=== PATIENT | male | born 1945 | race Caucasian/White ===

== ENCOUNTER 2024-12-15 14:44 | Inpatient (IN) | payer MEDICARE, OTHER ==
[~2024-12-15] VITALS: Ht 185.4 cm; Wt 96.2 kg
[~2024-12-15 14:44] MED LIST: CIPR-207 PO; LACT1CAP26 PO; NO HOME MEDS
--- NOTE | 2024-12-15 15:04 | Physician Documentation ---
History of Present Illness ~ Chief Complaint: Urinary Symptoms Stated Complaint: URINARY COMPLICATIONS Time Seen by MD: 15:12 Primary Medical Doctor: [facility]. Dr. Waterman HPI 79-year-old male brought to the Emergency department due to confusion and urinary symptoms. Noted to be febrile and tachycardic upon arrival. Patient has prior history of the same one month ago was admitted to the hospital. Reportedly last night was attending a board meeting doing fine but endorses that he had some dysuria. Throughout the day today confusion as escalated and family brought him in the emergency department. Medication Reconciliation Allergies: Coded Allergies: No Known Allergies (Unverified , 10/19/24) Miscellaneous Medications Home Med List (No Home Medications), (Reported) Discontinued Medications Ciprofloxacin HCl (Ciprofloxacin HCl), 750 MG PO BIDQ Discontinued Reason: patient no longer taking Lactobacillus Rhamnosus (Culturelle), 1 CAP PO DAILY Discontinued Reason: patient no longer taking Past Medical History Alcohol Use: None Drug Use: none Lives with: Family Lives In: Home Occupation: retired Review of Systems Constitutional: Reports: see HPI, fever, malaise, other (Fused) Genitourinary: Reports: see HPI, burning Physical Exam Vital Signs: RN Vital Signs have been reviewed: Yes, Temperature: 100.7, Source: Oral, Heart Rate: 110, Respiratory Rate: 15, BP: 129/80, Pulse Oximetry: 92, Weight: 96.200 General Appearance: other (Confused) EENT: PERRL/EOMI Neck: normal inspection Chest: no accessory muscle use Cardiolovascular: tachycardia Gastrointestinal: normal palpation Rectal: deferred Back: normal inspection Extremities: normal range of motion Skin: normal color, warm/dry Lymphatic: no adenopathy Neurologic: not oriented Psychiatric: other (Infused) Sepsis Screening Extremities: normal capillary refill Skin Color: Normal Progress Results/Orders Results/Orders Orders - BAILEY CORTEZ PAC Culture Blood (12/15/24 15:22) Chest,Single View (12/15/24 15:22) * (A) Ellis- Protocol * Q12H@07,19 (12/15/24 15:59) Page Hospitalist (12/15/24 17:31) Fill Out Med Reconciliation (12/15/24 17:31) Lactic,2hr (12/15/24 17:47) Completed Orders - BAILEY CORTEZ PAC Electrocardiogram (12/15/24 15:22) MG (12/15/24 15:22) Chest,Single View (12/15/24 15:22) Procalcitonin (12/15/24 15:22) BMP (12/15/24 15:22) Lacticsepsis (12/15/24 15:22) Ondansetron Inj. (Zofran 4mg/2ml Vial) (12/15/24 15:30) Normal Saline 1000ml (Sodium Chloride 10 (12/15/24 15:30) Ceftriaxone/[id number] 1gm (Rocephin 1 (12/15/24 15:30) Lidocaine 2% Jelly 11ml Syr (Glydo-Lidoc (12/15/24 16:00) Medications Received in ER Medications (Trade) Dose Ordered Sig/Carmen Route PRN Reason Start Time Stop Time Status Last Admin Dose Admin (Zofran 4mg/2ml vial) 4 mg ONCE ONCE IV 12/15/24 15:30 12/15/24 15:31 DC 12/15/24 16:10 4 MG Sodium Chloride 1,000 ml @ 1,000 mls/hr ONCE ONCE IV 12/15/24 15:30 12/15/24 16:29 DC 12/15/24 15:58 1,000 MLS/HR Ceftriaxone Sodium 50 ml @ 100 mls/hr ONCE ONCE IV 12/15/24 15:30 12/15/24 15:59 DC 12/15/24 16:11 100 MLS/HR Vital Signs 12/15/24 12/15/24 12/15/24 12/15/24 14:49 15:44 15:59 17:19 Temp 100.7 Pulse 110 118 107 Resp 15 20 20 17 B/P (MAP) 129/80 145/89 (107) 123/43 (69) Pulse Ox 92 93 96 O2 Flow Rate 0 2.0 Laboratory Tests Test 12/15/24 15:43 12/15/24 16:44 12/15/24 18:39 White Blood Count 12.3 H Red Blood Count 5.65 Hemoglobin 16.5 Hematocrit 48.6 Mean Corpuscular Volume 85.9 Mean Corpuscular Hemoglobin 29.1 Mean Corpuscular Hemoglobin Concent 33.9 Red Cell Distribution Width 14.6 H Platelet Count 122 L Mean Platelet Volume 8.7 Neutrophils (%) (Auto) 93.7 H Lymphocytes (%) (Auto) 3.6 L Monocytes (%) (Auto) 2.3 Eosinophils (%) (Auto) 0.1 Basophils (%) (Auto) 0.3 Neutrophils # (Auto) 11.5 H Lymphocytes # (Auto) 0.4 L Monocytes # (Auto) 0.3 Eosinophils # (Auto) 0.0 Basophils # (Auto) 0.0 CBC Comment Sodium Level 136 Potassium Level 3.6 Chloride Level 100 Carbon Dioxide Level 25.4 Anion Gap 11 Blood Urea Nitrogen 9 Creatinine 1.47 H Estimated GFR/1.73 m2 46 BUN/Creatinine Ratio 6.1 L Glucose Level 155 H Lactic Acid Level 3.7 H Calcium Level 8.7 Magnesium Level 1.9 Total Bilirubin 2.3 H Aspartate Amino Transf (AST/SGOT) 19 Alanine Aminotransferase (ALT/SGPT) 18 Alkaline Phosphatase 110 Total Protein 7.6 Albumin 4.0 Globulin 3.6 Albumin/Globulin Ratio 1.1 Procalcitonin 0.11 Chemistry Comments Urine Specimen Description Ellis cath Urine Color Yellow Urine Clarity Cloudy Urine pH 6.0 Urine Specific [place] >=1.030 Urine Protein 30 H Urine Glucose (UA) Negative Urine Ketones 15 H Urine Occult Blood Large H Urine Nitrite Negative Urine Bilirubin Negative Urine Urobilinogen 0.2 Urine Leukocyte Esterase Trace H Urine RBC Tntc Urine WBC 30-50 H Urine Squamous Epithelial Cells Few Urine Bacteria 2+ Urine Mucus Few Urine Culture Indicated Indicated Volume Urine Centrifuged 10 ml Urine Comment Microbiology Date/Time Source Procedure Growth Status 12/15/24 17:26 Urine Ellis Cath Urine Culture - Preliminary Culture received. Resulted 12/15/24 15:43 Blood Iv Start Blood Culture - Preliminary NEGATIVE (LESS THAN 24 HOURS) Resulted Medical Decision Making Additional Comment Examination and history at the bedside consistent with early Urosepsis. Sepsis order initiated. Patient to refer receive antibiotic coverage after serology testing along with fluid resuscitation. Will consult hospitalist for pending admission. All labs obtained patient resuscitated with 2 L of normal saline and received ceftriaxone. Labs all reviewed and consistent with SEVERE SEPSIS CRIT ERIA: A FOCUSED SEPSIS PERFUSIONS/REPERFUSION REASSESSMENT EXAMINATION WAS PERFORMED POST 2 L NS CRITICAL CARE TIME: 30 minutes Treatments/Evaluations: Close monitoring and treatment of unstable vital signs, cardiorespiratory, and neurologic status, while maintaining tight balance of fluid, respiratory, and cardiac interventions. This includes the administration of emergency fluid management while maintaining close respiratory support as well as the provision of immediate and broad-spectrum antibiotic therapy, while performing a simultaneous assessment for possible sources in order to direct targeted therapy. This time includes discussing the case with the patient and the patients family. This time also includes the consideration for invasive and chemical support to prevent cardiopulmonary collapse. This time does not include all procedures stated elsewhere in this record. This time also includes reviewing old records, labs and radiological studies. This time includes examining and re-examining the patient. Additionally, this time also includes arranging care with admitting and consulting physicians. ADMISSION This patient requires inpatient admission and ongoing acute care as their infectious symptoms have not stabilized and the patient is at risk for decompensation and/or an adverse event. Outpatient therapy is not advisable/safe due to patients clinical status and/or social factors. The decision to admit was made after careful consideration of the patients past medical history, clinical risk factors, comorbidities, and diagnostic studies. The patient will be admitted for further therapy, hemodynamic monitoring, careful hydration, infection/source control, further diagnostic imaging, and possible procedure]. Departure Disposition: ADMITTED INPATIENT Admitted to Inpatient Unit: to hospitalist Impression: Primary Impression: Sepsis due to urinary tract infection Additional Impression: MIKE (acute kidney injury) Condition: Stable Referrals: NO PRIMARY CARE PROVIDER (PCP) Additional Comment Medical Screen Exam History: This 79-year-old male presents accompanied by daughter with approximately one day of dysuria, chills, weakness, and several hours of confus ion described as cognitive decline by patient's daughter. Patient's daughter reports patient is normally highly active and alert and oriented x4. Exam: VITALS: Reviewed and as above. GENERAL: Alert, nontoxic appearing, no apparent distress. RESPIRATORY: No increased work of breathing, no respiratory distress, speaking in full clear sentences NEURO: Somewhat slow to respond to questions MSE performed in triage and patient returned to ED lobby by nursing staff The note accurately reflects work and decisions made by me.PANTERA Hair 12/15/24 15:04 Signature Scribe Signature: . Attestation: . DAVID RENEE Dec 15, 2024 15:04 BAILEY CORTEZ PAC Dec 15, 2024 16:35
[2024-12-15] MEDS: normal saline 1000ml 1,000 ML IV ONE (15:58)
[2024-12-15] MEDS: ondansetron/PF 4mg/2ml inj IV ONE (16:10)
[2024-12-15] MEDS: CefTRIAXone/D5W-Rocephin 1gm 50 ML IV ONE ×2 (16:11→20:32)
[2024-12-15 16:27] LABS: BASOPHILS % (AUTO) 0.3 % (0-1); EOSINOPHILS % (AUTO) 0.1 % (0-6); HEMATOCRIT 48.6 % (42.0-52.0); HEMOGLOBIN 16.5 g/dl (14.0-17.9); LYMPHOCYTES # (AUTO) 0.4 X10'3 (1.1-4.8); LYMPHOCYTES % (AUTO) 3.6 % (21-51); MEAN CORPUSCULAR HEMOGLOBIN 29.1 PG (27.0-31.0); MEAN CORPUSCULAR HGB CONC 33.9 g/dL (33.0-36.5); MEAN CORPUSCULAR VOLUME 85.9 FL (78-98); MEAN PLATELET VOLUME 8.7 FL (7.4-10.4); MONOCYTES # (AUTO) 0.3 X10'3 (0-0.9); MONOCYTES % (AUTO) 2.3 % (2-12); NEUTROPHILS # (AUTO) 11.5 X10'3 (1.8-7.7); NEUTROPHILS % (AUTO) 93.7 % (42-75); PLATELET COUNT 122 X10'3 (140-440); RED BLOOD COUNT 5.65 X10'6 (4.70-6.10); RED CELL DISTRIBUTION WIDTH 14.6 % (11.5-14.5); WHITE BLOOD COUNT 12.3 X10'3 (4.5-11.0)
[2024-12-15] MEDS: LidoCAINE 2% Topical Jelly 11mL syringe (UROJET) TOP ONE (16:28)
--- NOTE | 2024-12-15 16:31 | RADIOLOGY REPORT ---
CHEST RADIOGRAPH Indication: SEPSIS Technique: Single frontal view of the chest was obtained COMPARISON: DI CHEST,SINGLE VIEW on DOS: 10/19/24 FINDINGS: The study is nondiagnostic secondary to technical factors. Repeat chest x-ray recommended.
[2024-12-15 17:07] LABS: ALANINE AMINOTRANSFERASE 18 U/L (12-78); ALBUMIN/GLOBULIN RATIO 1.1 (1.1-1.5); ALKALINE PHOSPHATASE 110 IU/L (46-116); ANION GAP 11 (8-16); ASPARTATE AMINO TRANSFERASE 19 U/L (10-37); BILIRUBIN,TOTAL 2.3 MG/DL (0.1-1.0); BLOOD UREA NITROGEN 9 MG/DL (7-18); BUN/CREATININE RATIO 6.1 (10.0-20.0); CALCIUM 8.7 MG/DL (8.5-10.1); CHLORIDE 100 MMOL/L (99-107); CREATININE 1.47 MG/DL (0.60-1.10); GLUCOSE 155 MG/DL (70-104); MAGNESIUM 1.9 MG/DL (1.5-2.4); POTASSIUM 3.6 MMOL/L (3.5-5.1); SODIUM 136 MMOL/L (135-145); TOTAL CARBON DIOXIDE 25.4 MMOL/L (24-32); TOTAL PROTEIN 7.6 G/DL (6.4-8.2); eCRCL 48 ML/MIN; eGFR 46 ML/MIN
--- NOTE | 2024-12-15 17:07 | ELECTROCARDIOGRAPH REPORT ---
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 Ananth Hutton Measurements Intervals [place] Rate: 107 P: 53 VT: 141 QRS: 118 QRSD: 110 T: 53 QT: 392 QTc: 523 Interpretive Statements Sinus tachycardia Consider right ventricular hypertrophy Minimal ST elevation, inferior leads Prolonged QT interval Artifact in lead(s) I,II,III,aVR,aVL,aVF,V1,V2 Electronically Signed On 12-17-2024 6:35:[address] Ananth Hutton Please click the below link to view image of tracing.
[2024-12-15 17:19] LABS: BILIRUBIN,URINE NEGATIVE (Neg); CLARITY,URINE CLOUDY (Clear); COLOR,URINE YELLOW (Yellow); GLUCOSE, URINE NEGATIVE (Neg); KETONES,URINE 15 mg/dl (Neg); LEUKOCYTE ESTERASE ,URINE TRACE (Neg); OCCULT BLOOD,URINE LARGE (Neg); PROTEIN,URINE 30 mg/dl (Neg); UROBILINOGEN,URINE 0.2 E.U/dL (0.2-1.0)
[2024-12-15 17:22] LABS: NITRITES, URINE NEGATIVE (Neg); UA COLLECTION TYPE FOLEY CATH
[2024-12-15 17:25] LABS: BACTERIA,URINE 2+ /HPF (Neg); RBC,URINE TNTC /HPF (0-2); WBC,URINE 30-50 /HPF (0-4)
[2024-12-15 17:26] LABS: MUCUS STRANDS FEW /LPF (Neg); SQUAMOUS EPITHELIAL CELL,UR FEW /LPF (FEW)
[2024-12-15 22:50] VITALS: BP 116/64; PULSE 93; RESP 15; TEMP 101.3; O2SAT 93
[2024-12-15] MEDS ORDERED: magnesium hydroxide 30ml (MOM) UD suspension PO PRN (22:55)
[2024-12-15] MEDS ORDERED: potassium Cl 40MEQ/1/2NS 520ml 520 ML IV PRN (22:55)
[2024-12-15] MEDS ORDERED: potassium Cl 20 mEq SR tablet PO PRN ×2 (22:55)
[2024-12-15] MEDS ORDERED: magnesium sulf-water 4G/100mL 100 ML IV PRN (22:55)
[2024-12-15] MEDS ORDERED: mag hydrox/Alum hydrox/simeth 30ml oral suspension PO PRN (22:55)
[2024-12-15] MEDS ORDERED: morphine 2 MG/ML inj. syringe IV PRN (22:55)
[2024-12-15] MEDS ORDERED: ondansetron/PF 4mg/2ml inj IV PRN (22:55)
[2024-12-15] MEDS ORDERED: HYDROcodone/acetaminophen 5mg/325mg tablet PO PRN (22:55)
[2024-12-15] MEDS ORDERED: magnesium sulf-water 2g/50mL 50 ML IV PRN (22:55)
[2024-12-15] MEDS ORDERED: magnesium Cl slow-release 64mg tablet PO PRN (22:55)
--- NOTE | 2024-12-15 22:58 | HISTORY AND PHYSICAL-Residence ---
History & Physical Providers to CC Resident Creating Document: LORENZO HERNANDEZ, RES CC: LONI GILES MD ~ History of Present Illness Primary Medical Doctor: [facility]. Dr. Waterman Reason for Admit\Complaint: Burning micturition History of Present Illness A 79-year-old male with no significant past medical history presented to the ED with altered mental status and pain while urinating since last night. Patient endorses that he has burning sensation since last night with associated fever and chills that started this morning patient is and daughter claims that he has been confused since this morning. They also state that patient had UTI and sepsis in the beginning of the October that was treated in this hospital when he recovered completely. Patient also endorses that he vomited once this morning. Patient endorses sensation of incomplete emptying of bladder. Per the daughter, patient had urinary incontinence as a child due to some anatomic defect of the bladder and urethra. Patient does endorse associated pain in the lower abdomen Allergies: Coded Allergies: No Known Allergies (Unverified , 10/19/24) Home Medications Home Medications Active Reported No Home Medications (Home Med List) Each Past Medical History Past Medical History None Past Surgical History Surgical History Comment Hernia repair Tonsillectomy Past Social History Social History Comment Smoked one pack of cigarettes for the last 20 years and quit 30 years ago No alcohol, marijuana or illicit drugs Lives at home with Goes to [facility] for primary care Smoking: Quit greater than 1 year Alcohol Use: None Drug Use: None Lives with: Family Lives In: Home Occupation: retired ROS ROS All other systems reviewed in full and negative except for the pertinent positives mentioned in the HPI Constitutional: Reports: see HPI, fever, malaise, other (Fused) Genitourinary: Reports: see HPI, burning Exam Vitals: Vital Signs Date Time Temp Pulse Resp B/P (MAP) Pulse Ox O2 Delivery O2 Flow Rate FiO2 12/15/24 22:24 97.9 96 30 117/65 (82) 98 2.0 General: General: Confused HEENT: PERRLA, no icterus, pallor, lymphadenopathy, carotid bruit Respiratory system: Bilateral vesicular breath sounds heard, no adventitious breath sounds CVS: S1-S2 heard, no murmurs/rubs/gallop GI: Tenderness in the lower abdominal region, Soft,no organomegaly, no guarding/rigidity, bowel sounds present Neuro: No focal neurological deficits present Extremities: No edema cyanosis clubbing/deformities Genitourinary: Has indwelling Ellis's catheter Skin: Warm and dry Diagnostic Data Last Recorded Lab Results: 12/15/24 1543 12/15/24 1543 Advance Care Planning Advanced Care plannin - 30 Minutes (I spent 20 minutes discussing various resuscitative measures and the patient decided to be full code) Additional Plan Assessment: A 79-year-old male with no past medical history presented to the ED with burning micturition, pain and fever. Patient is admitted for the evaluation management of recurrent UTI and possible sepsis Plan: Recurrent UTI Possible underlying sepsis History of Pseudomonas septicemia Underlying BPH Elevated lactic acid and WBC count, normal procalcitonin UA positive for ketones, leukocyte esterase and WBC Patient was discharged on levofloxacin last time, Dr. Bowden was following the patient while in the hospital Follow up with CT abdomen pelvis Based on imaging findings, in view of recurrent UTI, underlying BPH could have been the reason recurrent UTI as med require urology follow up and consult along with ID consult. Patient is started on IV Zosyn, received ceftriaxone in the ED Follow up with urine culture and blood cultures ID consult in a.m. Prerenal MIKE probably secondary to renal tubular stasis Elevated creatinine Continue to monitor BMP Continue IV fluids at 100 cc/hour Code status: Full code Diet: Regular diet DVT prophylaxis: SCD Disposition: Admit to ortho, ID consult in a.m., follow up with urine cultures and CT abdomen pelvis Lorenzo Hernandez MD Internal Medicine, PGY 1 BPH Consider starting tamsulosin in a.m. after imaging findings I discussed the patient with the resident and agree with the assessment and plan as above. Loni Giles MD Critical Care Date of Service: Dec 15, 2024 Billing Provider: LONI GILES MD, SIVA, RES Dec 15, 2024 22:58 LONI GILES MD Dec 16, 2024 03:25
[2024-12-15] MEDS: normal saline 1000ml 1,000 ML IV SCH (23:27)
[2024-12-15] MEDS: acetaminophen 325mg tablet PO PRN (23:27)
[2024-12-16] MEDS: piperacillin/tazo 3.375gm/50ml 50 ML IV ONE (01:19)
[2024-12-16] MEDS: piperacillin/tazo 3.375gm/50ml 100 ML IV SCH (01:19)
[2024-12-16 05:37] LABS: BASOPHILS # (AUTO) 0.1 X10'3 (0-0.2); BASOPHILS % (AUTO) 0.4 % (0-1); EOSINOPHILS % (AUTO) 0 % (0-6); HEMATOCRIT 44.6 % (42.0-52.0); HEMOGLOBIN 15.1 g/dl (14.0-17.9); LYMPHOCYTES # (AUTO) 0.5 X10'3 (1.1-4.8); LYMPHOCYTES % (AUTO) 4.3 % (21-51); MEAN CORPUSCULAR HEMOGLOBIN 29.1 PG (27.0-31.0); MEAN CORPUSCULAR HGB CONC 33.9 g/dL (33.0-36.5); MEAN CORPUSCULAR VOLUME 85.7 FL (78-98); MEAN PLATELET VOLUME 8.5 FL (7.4-10.4); MONOCYTES # (AUTO) 0.4 X10'3 (0-0.9); MONOCYTES % (AUTO) 3.4 % (2-12); NEUTROPHILS % (AUTO) 91.9 % (42-75); PLATELET COUNT 104 X10'3 (140-440); RED BLOOD COUNT 5.21 X10'6 (4.70-6.10); RED CELL DISTRIBUTION WIDTH 14.6 % (11.5-14.5)
[2024-12-16 05:49] LABS: ALBUMIN 3.1 G/DL (3.4-5.0); ANION GAP 8 (8-16); BLOOD UREA NITROGEN 13 MG/DL (7-18); BUN/CREATININE RATIO 8.4 (10.0-20.0); CALCIUM 8.3 MG/DL (8.5-10.1); CHLORIDE 104 MMOL/L (99-107); CREATININE 1.54 MG/DL (0.60-1.10); GLUCOSE 120 MG/DL (70-104); MAGNESIUM 1.8 MG/DL (1.5-2.4); POTASSIUM 3.6 MMOL/L (3.5-5.1); SODIUM 139 MMOL/L (135-145); eCRCL 45 ML/MIN; eGFR 44 ML/MIN
[2024-12-16 06:00] VITALS: BP 115/58; PULSE 93; RESP 15; TEMP 100.3; O2SAT 92
[2024-12-16] MEDS: docusate sod 100mg capsule PO SCH (07:10)
[2024-12-16] MEDS: heparin, porcine 5000 units/ml vial SQ SCH (07:10)
[2024-12-16] MEDS: K and/or MAG REPLACEMENT MC SCH (08:00)
[2024-12-16 08:43] VITALS: TEMP 102.6
--- NOTE | 2024-12-16 09:59 | PROGRESS NOTE ---
Daily Progress Note Providers to CC ~ Antibiotic Timeout Antibiotic Ordered?: Yes Subjective Patient has no new complaints. Seen resting comfortably. RN reports that patient has blood cultures positive. Objective Vital Signs Date Time Temp Pulse Resp B/P (MAP) Pulse Ox O2 Delivery O2 Flow Rate FiO2 12/16/24 08:43 102.6 12/16/24 08:00 Nasal Cannula 2.0 12/16/24 06:00 91 12/16/24 06:00 15 115/58 (77) 92 Result Diagram: 12/16/247 12/16/24 0447 Awake alert cooperative in no acute distress HEENT normocephalic atraumatic extraocular movements are intact Neck supple, no JVD Chest: Clear to auscultation, no wheezes crackles rhonchi Heart: Regular rate rhythm, no murmur or gallop rub Abdomen soft, nontender, no organomegaly Extremities no cyanosis clubbing or edema Neuro exam is nonfocal. Other Results Medications reviewed Problem\Assessment\Plan 79 years old male presented to the ER with altered mental status. Patient complained of dysuria at the time of admission 1. Sepsis source urine: Cultures negative so far 2. Bacteremia: Blood cultures positive. Await final cultures. Continue IV antibiotics 3. MIKE: Creatinine is trendin up. Patient has a normal saline. Continue monitor. 4. Code status: Full code Sepsis Screening Skin Color: Normal Date of Service: Dec 16, 2024 Billing Provider: GORGE PETE MD Common Visit Codes: [id number] INP/OBS CARE(HIGH) GORGE PETE MD Dec 16, 2024 09:59
[2024-12-16 10:00] VITALS: BP 105/62; PULSE 92; RESP 16; TEMP 97.4; O2SAT 97
[2024-12-16 10:47] VITALS: TEMP 99.8
--- NOTE | 2024-12-16 11:30 | RADIOLOGY REPORT ---
Exam: CT CT ABDOMEN PELVIS History: uti, rule out pyelonephritis Comparison Study: CT chest abdomen pelvis performed on 10/22/2024. Technique: Multidetector spiral CT of the abdomen and pelvis was performed from lung bases to pubic s ymphysis. Imaging was performed without intravenous contrast. Coronal and sagittal multiplanar reform ats were obtained from the axial data set by the technologist. Radiation Dose : 1. Abdomen/Pelvis: CTDIvol 25.1 mGy, DLP 1334 mGy*cm. Findings: Evaluation of vasculature and solid organs is limited due to lack of intravenous contrast use. Lung Bases: Bibasilar atelectasis. Visualized portions of the heart and pericardium are unremarkable. Liver: The liver is normal in size. No focal lesions. Diffusely hypoattenuating liver parenchyma con sistent with hepatic steatosis. Gallbladder and Biliary Tree: The gallbladder contains sludge. No intrahepatic or extrahepatic bilia ry ductal dilatation. Spleen: Calcified granulomas in the spleen. The spleen is not enlarged. Pancreas: The pancreas is grossly unremarkable. Adrenal Glands: Unremarkable Kidneys: No intrarenal calculi or hydronephrosis in the right or left kidney. Bilateral perinephric fat stranding. GI tract: The stomach is grossly normal in appearance. No evidence of small bowel wall thickening or abnormal dilatation to suggest bowel obstruction. The colon is unremarkable. The appendix is not visu alized, however no inflammatory changes in the right lower quadrant to suggest acute appendicitis. Peritoneum/mesentery/retroperitoneum. No evidence of free intraperitoneal air. No ascites. No evidenc e of suspicious lymphadenopathy. Abdominal Wall: Unremarkable. Vasculature: Infrarenal abdominal aortic aneurysm measures 5.1 cm. There is intramural thrombus. Rig ht common iliac artery aneurysm measures 3.5 cm and left common iliac artery aneurysm measures 2.8 cm . These are not significantly changed. There is intramural thrombus in both. Urinary Bladder: Ellis catheter in the urinary bladder. Urinary bladder underdistended with wall thic kening and contains air which may be related to the presence of the Ellis catheter. Pelvic Organs: Unremarkable Musculoskeletal: No aggressive focal bony lesions, acute fractures or dislocation. IMPRESSION: 1. Nonspecific bilateral perinephric fat stranding. No hydronephrosis or intrarenal calculi. Urinary bladder wall thickening, nonspecific and in part attributable to underdistention. Constellation of findings may reflect urinary tract infection. 2. Infrarenal abdominal aortic aneurysm measuring 5.1 cm with intramural thrombus and bilateral comm on iliac artery aneurysm measuring 3.5 cm on the right and 2.8 cm in the left, not significantly franco ged. 3. Hepatic steatosis.
[2024-12-16] MEDS: piperacillin/tazo 3.375gm/50ml 50 ML IV SCH (16:33)
[2024-12-16] MEDS: lactose-reduced food (Ensure Enlive) - 237ml bottle PO SCH (18:15)
[2024-12-16 18:30] VITALS: BP 124/63; PULSE 90; RESP 16; TEMP 97.2; O2SAT 95
[2024-12-16 22:00] VITALS: BP 115/61; PULSE 90; RESP 16; TEMP 100.5; O2SAT 92
[2024-12-17 04:58] LABS: BASOPHILS # (AUTO) 0.1 X10'3 (0-0.2); BASOPHILS % (AUTO) 0.8 % (0-1); EOSINOPHILS # (AUTO) 0.1 X10'3 (0-0.9); EOSINOPHILS % (AUTO) 0.8 % (0-6); HEMATOCRIT 45.6 % (42.0-52.0); HEMOGLOBIN 15.4 g/dl (14.0-17.9); LYMPHOCYTES % (AUTO) 14.7 % (21-51); MEAN CORPUSCULAR HEMOGLOBIN 29.4 PG (27.0-31.0); MEAN CORPUSCULAR HGB CONC 33.7 g/dL (33.0-36.5); MEAN CORPUSCULAR VOLUME 87.1 FL (78-98); MEAN PLATELET VOLUME 8.6 FL (7.4-10.4); MONOCYTES # (AUTO) 0.7 X10'3 (0-0.9); MONOCYTES % (AUTO) 10.6 % (2-12); NEUTROPHILS % (AUTO) 73.1 % (42-75); PLATELET COUNT 103 X10'3 (140-440); RED BLOOD COUNT 5.24 X10'6 (4.70-6.10); RED CELL DISTRIBUTION WIDTH 14.9 % (11.5-14.5); WHITE BLOOD COUNT 6.9 X10'3 (4.5-11.0)
[2024-12-17 05:16] LABS: ALBUMIN 2.8 G/DL (3.4-5.0); ANION GAP 9 (8-16); BLOOD UREA NITROGEN 16 MG/DL (7-18); BUN/CREATININE RATIO 11.3 (10.0-20.0); CALCIUM 8.6 MG/DL (8.5-10.1); CHLORIDE 107 MMOL/L (99-107); CREATININE 1.42 MG/DL (0.60-1.10); GLUCOSE 126 MG/DL (70-104); MAGNESIUM 2.3 MG/DL (1.5-2.4); POTASSIUM 4.1 MMOL/L (3.5-5.1); SODIUM 143 MMOL/L (135-145); TOTAL CARBON DIOXIDE 27.2 MMOL/L (24-32); eCRCL 49 ML/MIN; eGFR 48 ML/MIN
[2024-12-17 06:00] VITALS: BP 110/71; PULSE 69; RESP 17; TEMP 97.4; O2SAT 96
[2024-12-17 08:20] VITALS: RESP 17; O2SAT 96
[2024-12-17 10:00] VITALS: BP 126/78; PULSE 74; RESP 16; TEMP 97.7; O2SAT 95
--- NOTE | 2024-12-17 15:04 | PROGRESS NOTE ---
Daily Progress Note Providers to CC ~ Antibiotic Timeout Antibiotic Ordered?: Yes Subjective No new complaints, patient is seen resting comfortably. Objective Vital Signs Date Time Temp Pulse Resp B/P (MAP) Pulse Ox O2 Delivery O2 Flow Rate FiO2 12/17/24 06:00 97.4 69 17 110/71 (84) 96 Nasal Cannula 2.0 28 Result Diagram: 12/17/24 0441 12/17/24 0441 Awake alert cooperative in no acute distress HEENT normocephalic atraumatic extraocular movements are intact Neck supple, no JVD Chest: Clear to auscultation, no wheezes crackles rhonchi Heart: Regular rate rhythm, no murmur or gallop rub Abdomen soft, nontender, no organomegaly Extremities no cyanosis clubbing or edema Neuro exam is nonfocal. Other Results Medications reviewed Problem\Assessment\Plan 79 years old male presented to the ER with altered mental status. Patient complained of dysuria at the time of admission 1. Sepsis source urine: Cultures negative so far 2. Bacteremia: Blood cultures positive. Await final cultures. Continue IV antibiotics 3. MIKE: Creatinine is trendin up. Patient has a normal saline. Continue monitor. 4. Infectious encephalopathy; Resolved 5. Code status: Full code Sepsis Screening Skin Color: Normal Date of Service: Dec 17, 2024 Billing Provider: GORGE PETE MD Common Visit Codes: [id number] INP/OBS CARE(HIGH) GORGE PETE MD Dec 17, 2024 15:03
[2024-12-17 18:00] VITALS: BP 123/77; PULSE 79; RESP 17; TEMP 98.1; O2SAT 94
[2024-12-17 20:00] VITALS: RESP 17; O2SAT 94
[2024-12-17 22:00] VITALS: BP 132/78; PULSE 79; RESP 16; TEMP 98.9; O2SAT 94
[2024-12-18 06:00] VITALS: BP 123/73; PULSE 63; RESP 16; TEMP 97.8; O2SAT 94
[2024-12-18 07:13] LABS: BASOPHILS # (AUTO) 0.1 X10'3 (0-0.2); BASOPHILS % (AUTO) 1.1 % (0-1); EOSINOPHILS # (AUTO) 0.2 X10'3 (0-0.9); EOSINOPHILS % (AUTO) 4.1 % (0-6); HEMOGLOBIN 14.9 g/dl (14.0-17.9); LYMPHOCYTES # (AUTO) 1.3 X10'3 (1.1-4.8); LYMPHOCYTES % (AUTO) 23.4 % (21-51); MEAN CORPUSCULAR HEMOGLOBIN 29.1 PG (27.0-31.0); MEAN CORPUSCULAR HGB CONC 33.9 g/dL (33.0-36.5); MEAN CORPUSCULAR VOLUME 85.8 FL (78-98); MEAN PLATELET VOLUME 9.3 FL (7.4-10.4); MONOCYTES # (AUTO) 0.6 X10'3 (0-0.9); MONOCYTES % (AUTO) 9.9 % (2-12); NEUTROPHILS # (AUTO) 3.5 X10'3 (1.8-7.7); NEUTROPHILS % (AUTO) 61.5 % (42-75); PLATELET COUNT 103 X10'3 (140-440); RED BLOOD COUNT 5.13 X10'6 (4.70-6.10); RED CELL DISTRIBUTION WIDTH 14.7 % (11.5-14.5); WHITE BLOOD COUNT 5.7 X10'3 (4.5-11.0)
[2024-12-18 07:22] LABS: ALBUMIN 2.8 G/DL (3.4-5.0); ANION GAP 7 (8-16); BLOOD UREA NITROGEN 14 MG/DL (7-18); CALCIUM 8.5 MG/DL (8.5-10.1); CHLORIDE 107 MMOL/L (99-107); CREATININE 1.08 MG/DL (0.60-1.10); GLUCOSE 104 MG/DL (70-104); MAGNESIUM 2.2 MG/DL (1.5-2.4); SODIUM 142 MMOL/L (135-145); TOTAL CARBON DIOXIDE 27.9 MMOL/L (24-32); eCRCL 65 ML/MIN; eGFR 66 ML/MIN
[2024-12-18 07:23] LABS: POTASSIUM 3.9 MMOL/L (3.5-5.1)
[2024-12-18 07:35] VITALS: RESP 16; O2SAT 94
[2024-12-18 10:00] VITALS: BP 139/80; PULSE 84; RESP 18; TEMP 97.6; O2SAT 92
[2024-12-18 18:30] VITALS: BP 118/77; PULSE 75; RESP 18; TEMP 97.8; O2SAT 93
--- NOTE | 2024-12-18 19:08 | CONSULTATION REPORT ---
Consult Consult Consultation Antibiotic Days Zosyn 2 S/P Rocephin Lines PIV Micro 12/15 Blood- Pseudomonas 12/15 Urine- negative Subjective: Patient is a 79 year old male who is known to me due to a consultation in October for Pseudomonas septicemia. At the time, he was thought to have had a prostate source so he was discharged home to complete a 4 week course of Ciprofloxacin. Today, he states that he had, in fact, done so and that he was feeling great, active and working in his yard. He presented to the ER on 12/15, however, with burning on urination which progressed to confusion. He was admitted for sepsis and ID is asked to consult because he is growing Pseudomonas in the blood again. On current exam, he denies any other potential sources no joint pains and back pain at baseline. Objective Vitals: Afebrile, 79, 16, 132/78, 94% on 2L Alert, NAD nc/at, no oral lesions regular, no murmur appreciated clear anteriorly soft, not tender, no flank nor suprapubic pain PIV ok Laboratory Tests 12/18/24 06:12 12/16 CT 1. Nonspecific bilateral perinephric fat stranding. No hydronephrosis or intrarenal calculi. Urinary bladder wall thickening, nonspecific and in part attributable to underdistention. Constellation of findings may reflect urinary tract infection. 2. Infrarenal abdominal aortic aneurysm measuring 5.1 cm with intramural thrombus and bilateral common iliac artery aneurysm measuring 3.5 cm on the right and 2.8 cm in the left, not significantly changed. 3. Hepatic steatosis. Assessment: // Recurrent pseudomonas septicemia- he complained of urinary symptoms again though it is unclear why he may have recurred // Antibiotic Allergies: none Plan: - Patient can be transitioned back to Cipro for ease of ultimate discharge - However, since this is a recurrence, he should not go until he gets repeat blood cultures and 2D echo to ensure no deeper seeding - Monitor Cr - Physical therapy - Will continue to follow PARRIS CHRIS DO Dec 18, 2024 19:08
--- NOTE | 2024-12-18 19:43 | PROGRESS NOTE ---
Daily Progress Note Providers to CC ~ Antibiotic Timeout Antibiotic Ordered?: Yes Subjective No new complaints, patient is seen resting comfortably Objective Vital Signs Date Time Temp Pulse Resp B/P (MAP) Pulse Ox O2 Delivery O2 Flow Rate FiO2 12/18/24 18:30 97.8 75 18 118/77 (91) 93 Nasal Cannula 1.0 12/18/24 10:00 24 Result Diagram: 12/18/24 0612 12/18/24 0612 Awake alert cooperative in no acute distress HEENT normocephalic atraumatic extraocular movements are intact Neck supple, no JVD Chest: Clear to auscultation, no wheezes crackles rhonchi Heart: Regular rate rhythm, no murmur or gallop rub Abdomen soft, nontender, no organomegaly Extremities no cyanosis clubbing or edema Neuro exam is nonfocal. Other Results Medications reviewed Problem\Assessment\Plan 79 years old male presented to the ER with altered mental status. Patient complained of dysuria at the time of admission 1. Sepsis source urine: Cultures NGTD. 2. Bacteremia: Blood cultures positive. Await final cultures. Continue IV antibiotics 3. MIKE: Resolved with IVF . 4. Infectious encephalopathy; Resolved 5. Code status: Full code 6. Disposition :Home when cleared by ID . Sepsis Screening Skin Color: Normal Date of Service: Dec 18, 2024 Billing Provider: GORGE PETE MD Common Visit Codes: [id number] INP/OBS CARE(HIGH) GORGE PETE MD Dec 18, 2024 19:43
[2024-12-18 22:00] VITALS: BP 122/75; PULSE 69; RESP 16; TEMP 97.8; O2SAT 95
[2024-12-18] MEDS: ciprofloxacin 250mg tablet PO SCH (22:14)
[2024-12-19 06:00] VITALS: BP 129/76; PULSE 76; RESP 15; TEMP 98.1; O2SAT 95
[2024-12-19 07:29] LABS: BASOPHILS # (AUTO) 0.1 X10'3 (0-0.2); BASOPHILS % (AUTO) 1.1 % (0-1); EOSINOPHILS # (AUTO) 0.2 X10'3 (0-0.9); EOSINOPHILS % (AUTO) 4.4 % (0-6); HEMATOCRIT 43.2 % (42.0-52.0); HEMOGLOBIN 14.8 g/dl (14.0-17.9); LYMPHOCYTES # (AUTO) 1.4 X10'3 (1.1-4.8); LYMPHOCYTES % (AUTO) 27.2 % (21-51); MEAN CORPUSCULAR HEMOGLOBIN 29.2 PG (27.0-31.0); MEAN CORPUSCULAR HGB CONC 34.2 g/dL (33.0-36.5); MEAN CORPUSCULAR VOLUME 85.5 FL (78-98); MEAN PLATELET VOLUME 8.3 FL (7.4-10.4); MONOCYTES # (AUTO) 0.5 X10'3 (0-0.9); MONOCYTES % (AUTO) 9.6 % (2-12); NEUTROPHILS % (AUTO) 57.7 % (42-75); PLATELET COUNT 127 X10'3 (140-440); RED BLOOD COUNT 5.05 X10'6 (4.70-6.10); WHITE BLOOD COUNT 5.2 X10'3 (4.5-11.0)
[2024-12-19 07:56] LABS: ANION GAP 9 (8-16); BLOOD UREA NITROGEN 12 MG/DL (7-18); BUN/CREATININE RATIO 11.1 (10.0-20.0); CALCIUM 8.5 MG/DL (8.5-10.1); CHLORIDE 108 MMOL/L (99-107); CREATININE 1.08 MG/DL (0.60-1.10); GLUCOSE 109 MG/DL (70-104); MAGNESIUM 2.2 MG/DL (1.5-2.4); SODIUM 143 MMOL/L (135-145); TOTAL CARBON DIOXIDE 26.2 MMOL/L (24-32); eCRCL 65 ML/MIN; eGFR 66 ML/MIN
[2024-12-19 08:00] VITALS: RESP 20; O2SAT 91
[2024-12-19 10:00] VITALS: BP 133/76; PULSE 90; RESP 20; TEMP 98; O2SAT 91
--- NOTE | 2024-12-19 17:56 | PROGRESS NOTE ---
Daily Progress Note Providers to CC ~ Antibiotic Timeout Antibiotic Ordered?: Yes Subjective Patient has no new complaints, seen resting comfortably. Objective Vital Signs Date Time Temp Pulse Resp B/P (MAP) Pulse Ox O2 Delivery O2 Flow Rate FiO2 12/19/24 10:00 98.0 90 20 133/76 (95) 91 Room Air 12/18/24 18:30 1.0 12/18/24 10:00 24 Result Diagram: 12/19/24 0704 12/19/24 0704 Awake alert cooperative in no acute distress HEENT normocephalic atraumatic extraocular movements are intact Neck supple, no JVD Chest: Clear to auscultation, no wheezes crackles rhonchi Heart: Regular rate rhythm, no murmur or gallop rub Abdomen soft, nontender, no organomegaly Extremities no cyanosis clubbing or edema Neuro exam is nonfocal. Other Results Medications reviewed Problem\Assessment\Plan 79 years old male presented to the ER with altered mental status. Patient complained of dysuria at the time of admission 1. Sepsis source urine: Cultures NGTD. Echo pending . ID consulted . Reviewed recommendations of Dr. Bowden. 2. Bacteremia: Blood cultures positive for Pseudomonas. Abx per ID 3. MIKE: Resolved with IVF . 4. Infectious encephalopathy; Resolved 5. Code status: Full code 6. Disposition :Home when cleared by ID . Sepsis Screening Skin Color: Normal Date of Service: Dec 19, 2024 Billing Provider: GORGE PETE MD Common Visit Codes: [id number] INP/OBS CARE(HIGH) GORGE PETE MD Dec 19, 2024 17:55
[2024-12-19 19:00] VITALS: BP 134/73; PULSE 69; RESP 16; TEMP 98; O2SAT 93
[2024-12-19] MEDS ORDERED: morphine 4 MG/ML inj SYRINge IV PRN (20:18)
[2024-12-19 22:00] VITALS: BP 121/77; PULSE 73; RESP 13; TEMP 97.5; O2SAT 93
[2024-12-20 05:00] VITALS: BP 151/81; PULSE 84; RESP 19; TEMP 97.2; O2SAT 92
[2024-12-20 06:05] LABS: ANION GAP 9 (8-16); BLOOD UREA NITROGEN 12 MG/DL (7-18); BUN/CREATININE RATIO 11.8 (10.0-20.0); CALCIUM 8.8 MG/DL (8.5-10.1); CHLORIDE 108 MMOL/L (99-107); CREATININE 1.02 MG/DL (0.60-1.10); GLUCOSE 105 MG/DL (70-104); POTASSIUM 3.9 MMOL/L (3.5-5.1); SODIUM 142 MMOL/L (135-145); TOTAL CARBON DIOXIDE 25.2 MMOL/L (24-32); eCRCL 69 ML/MIN; eGFR 71 ML/MIN
[2024-12-20 06:07] LABS: BASOPHILS # (AUTO) 0.1 X10'3 (0-0.2); BASOPHILS % (AUTO) 1.4 % (0-1); EOSINOPHILS # (AUTO) 0.2 X10'3 (0-0.9); EOSINOPHILS % (AUTO) 3.7 % (0-6); HEMATOCRIT 42.8 % (42.0-52.0); HEMOGLOBIN 14.7 g/dl (14.0-17.9); LYMPHOCYTES # (AUTO) 1.6 X10'3 (1.1-4.8); LYMPHOCYTES % (AUTO) 28.3 % (21-51); MEAN CORPUSCULAR HEMOGLOBIN 29.4 PG (27.0-31.0); MEAN CORPUSCULAR HGB CONC 34.4 g/dL (33.0-36.5); MEAN CORPUSCULAR VOLUME 85.5 FL (78-98); MEAN PLATELET VOLUME 8.3 FL (7.4-10.4); MONOCYTES # (AUTO) 0.5 X10'3 (0-0.9); NEUTROPHILS # (AUTO) 3.3 X10'3 (1.8-7.7); NEUTROPHILS % (AUTO) 57.6 % (42-75); PLATELET COUNT 141 X10'3 (140-440); RED BLOOD COUNT 5.01 X10'6 (4.70-6.10); RED CELL DISTRIBUTION WIDTH 14.5 % (11.5-14.5); WHITE BLOOD COUNT 5.7 X10'3 (4.5-11.0)
[2024-12-20 08:00] VITALS: RESP 17; O2SAT 95
[2024-12-20 10:00] VITALS: BP 126/73; PULSE 65; RESP 15; TEMP 98.2; O2SAT 93
--- NOTE | 2024-12-20 15:52 | PROGRESS NOTE ---
Daily Progress Note Providers to CC ~ Antibiotic Timeout Antibiotic Ordered?: Yes Subjective No complaints. Patient is resting comfortably. He is able to ambulate without assistance. Family at bedside. Objective Vital Signs Date Time Temp Pulse Resp B/P (MAP) Pulse Ox O2 Delivery O2 Flow Rate FiO2 12/20/24 10:00 98.2 65 15 126/73 (90) 93 Room Air 12/18/24 18:30 1.0 12/18/24 10:00 24 Result Diagram: 12/20/24 0503 12/20/24 0503 Awake alert cooperative in no acute distress HEENT normocephalic atraumatic extraocular movements are intact Neck supple, no JVD Chest: Clear to auscultation, no wheezes crackles rhonchi Heart: Regular rate rhythm, no murmur or gallop rub Abdomen soft, nontender, no organomegaly Extremities no cyanosis clubbing or edema Neuro exam is nonfocal. Other Results Medications reviewed Problem\Assessment\Plan 79 years old male presented to the ER with altered mental status. Patient complained of dysuria at the time of admission 1. Sepsis source urine: Cultures NGTD. Echo pending . ID consulted . Reviewed recommendations of Dr. Bowden. Await final recommendations regarding antibiotics and discharge. 2. Bacteremia: Blood cultures positive for Pseudomonas. Abx per ID 3. MIKE: Resolved with IVF . 4. Infectious encephalopathy; Resolved 5. Code status: Full code 6. Disposition :Home when cleared by ID . Patient informed. Sepsis Screening Skin Color: Normal Date of Service: Dec 20, 2024 Billing Provider: GORGE PETE MD Common Visit Codes: [id number] INP/OBS CARE(MOD) GORGE PETE MD Dec 20, 2024 15:52
--- NOTE | 2024-12-20 17:23 | CARDIOLOGY REPORT ---
APPROVED REPORT EXAM: Limited 2D, Doppler, and color-flow Echocardiogram. Patient Location: [address] Blood Pressure: 151/81 mmHg Heart Rate: 67 bpm Rhythm: Sinus Rhythm Indications Endocarditis/Vegetations UTI Altered Mental Status Urinary Complications Ticket Marker: None Previous echo: 10/20/2024 [facility] EF:65-70% 2D Dimensions RVDd 3.4 cm LA Diam4.3 cm RA Minor3.8 cmIVC 21.70 mm CO 3.2 L/min M-Mode Dimensions RVDd 3.92 (2.1-3.2cm) Left Atrium(MM) 4.25 (2.5-4.0cm) IVSd 1.17 (0.7-1.1cm) LVDd 4.15 (4.0-5.6cm) Aortic Root 3.37 (2.2-3.7cm) PWd 1.10 (0.7-1.1cm) Aortic Cusp Exc 2.09 (1.5-2.0cm) IVSs 1.27 cm LVDs 2.78 (2.0-3.8cm) FS (%) 33 % PWs 1.37 cm ESV(Teich) 29.0 ml LVEF(%) 62 (>50%) Tricuspid Valve TR P. Velocity 81 cm/s RAP ESTIMATE 15 mmHg TR Peak Gr. 3 mmHg RVSP 18 mmHg LEFT VENTRICLE Normal LV size and wall thickness. Overall systolic function is normal. Overall LVEF is 60-65%. RIGHT VENTRICLE Right ventricle is mildly dilated with adequate function. Estimated PA systolic pressure is 18 mmHg. ATRIA Left atrium is mildly dilated. The right atrium size is normal. AORTIC VALVE Aortic valve is grossly normal in structure and function. Aortic valve not fully assessed due to limi chi exam. Complete echo was performed on 10/20/2024. Trace insufficiency. MITRAL VALVE Mitral valve is grossly normal in structure and function. Trace regurgitation. TRICUSPID VALVE TV appears structurally normal with trace regurgitation. GREAT VESSELS The aortic root is normal in size. IVC is dilated and collapses less than 50% with inspiration. PERICARDIUM Normal pericardium. No pericardial effusion seen. Other Information Study Quality: Adequate Conclusion Normal LV size and wall thickness. Overall systolic function is normal. Overall LVEF is 60-65%. Right ventricle is mildly dilated with adequate function. Estimated PA systolic pressure is 18 mmHg. Left atrium is mildly dilated. The right atrium size is normal. Aortic valve is grossly normal in structure and function. Aortic valve not fully assessed due to limi chi exam. Complete echo was performed on 10/20/2024. Trace insufficiency. Mitral valve is grossly normal in structure and function. Trace regurgitation. TV appears structurally normal with trace regurgitation. Normal pericardium. No pericardial effusion seen.
[2024-12-20 18:00] VITALS: BP 136/78; PULSE 83; RESP 15; TEMP 97.9; O2SAT 94
[2024-12-20 22:00] VITALS: BP 155/74; PULSE 61; RESP 16; TEMP 97.9; O2SAT 96
[2024-12-21 06:00] VITALS: BP 123/68; PULSE 76; RESP 18; TEMP 97.8; O2SAT 93
[2024-12-21 08:00] VITALS: RESP 18; O2SAT 93
--- NOTE | 2024-12-21 11:45 | PROGRESS NOTE ---
Progress Note ID Providers to CC ~ Progress Note Progress Note: Antibiotic Days Cipro 3 Lines PIV Micro 6/ Blood- Pseudomonas (subtly different MICs compared to before) / Urine- negative / Blood- ngtd Subjective: Patient is feeling great. He has urology follow up arranged at the [place] Objective Vitals: Afebrile, 61, 16, 155/74, 96% on 2L Alert, NAD nc/at, no oral lesions regular, no murmur appreciated clear anteriorly soft, not tender, no flank nor suprapubic pain PIV ok Laboratory Tests 12/20/24 05:03 Assessment: // Pseudomonas septicemia, source likely urinary again. No evidence of deep seeding on echo nor CT abdomen // Hx Pseudomonas septicemia in October s/p 4 weeks of therapy. MICs of this organism were subtly different // Antibiotic Allergies: none Plan: - Continue Cipro for 2 week course - Needs to [facility] or with [facility] after his therapy is complete for surveillance cultures - Appreciate urology follow up at the [place] PARRIS CHRIS DO Dec 21, 2024 11:45
[2024-12-21] MEDS ORDERED: CIPR250T4 PO (11:56)
--- NOTE | 2024-12-21 18:39 | DISCHARGE SUMMARY ---
Discharge Summary Providers to CC ~ Discharge Summary Admission Diagnosis: UTI WITH POSSIBLE SEPSIS Hospital Course DATE OF ADMISSION: December 15, 2024 DATE OF DISCHARGE: December 21, 2024 CBC testing done on December 20, 2024 WBC 5.7 hemoglobin 14.7 hematocrit 42.8 platelet count 141. Serum chemistry done on December 20 showed sodium 142 potassium 3.9 creatinine 1.02 GFR. Procalcitonin 0.11. Blood culture no growth after two days. Previous blood culture showed Pseudomonas aeruginosa urine culture showed no growth after two days. During hospitalization patient had echocardiogram, abdomen and pelvis CT scan and x-ray chest done. Please see details about the results of these diagnostic study in actual EHR. Discharge Diagnosis\\Comment: Pseudomonas septicemia, source likely urinary , Hx Pseudomonas septicemia in October s/p 4 weeks of therapy MIKE: Resolved, Infectious encephalopathy; Resolved Operations\\Procedures: None Consultants: Dr. Bowden Complications: None Condition on DC: Stable New Medications: Ciprofloxacin HCl (Ciprofloxacin HCl) 250 Mg Tablet 750 MG PO BIDQ for 14 Days, #28 TAB Discontinued Medications: Home Med List (No Home Medications) Each Discharge Summary: 79 years old male presented to the ER with altered mental status. Patient complained of dysuria at the time of admission 1. Sepsis source urine: Cultures NGTD. Echo done results reviewed. Dr. Bowden followed the patient Reviewed recommendations of Dr. Bowden. As per ID specialist" Continue Cipro for 2 week course - Needs to follow up in [facility] or with [facility] after his therapy is complete for surveillance cultures - Appreciate urology follow up at the [place]" 2. Bacteremia: Blood cultures positive for Pseudomonas. Abx per ID 3. MIKE: Resolved with IVF . 4. Infectious encephalopathy; Resolved Patient's clinical condition improved and he has been afebrile and getting discharged home with his today. Patient is seen and examined on the day of discharge. Discharge instructions provided to the patient. please follow up with PCP in [facility] , urology and ID specialist in outpatient setting after hospital discharge . If able to see Dr. Bowden follow up in 3-4 weeks after antibiotics are completed. In case of an emergency please call 911 or go to the nearest hospital.All labs and diagnostic workup and discharge plan discussed with the patient in detail before discharge. All questions and concerns answered to the best of my professional knowledge. General-patient not in any acute distress, alert awake oriented, age- appropriate, looks comfortable HEENT-atraumatic normocephalic, neck supple without elevated JVD, no thyromegaly or carotid bruit. No lymphadenopathy bilaterally. Eyes-no icterus or pallor seen in eyes Chest-clear to auscultation bilaterally, breathing nonlabored no tachypnea, no wheezing, no crepitation, no crackles. Heart-S1-S2 normal, regular heart rate no murmur Abdomen bowel sounds positive on auscultation, soft nondistended nontender no guarding, no rigidity Skin no active skin rash Neurology-grossly intact, nonfocal alert awake oriented Extremity- no pedal edema able to move all 4 extremities Psychiatry - patient is not confused or agitated cooperated during physical examination *Problems/Diagnosis: (1) MIKE (acute kidney injury) Status: Acute (2) Sepsis due to urinary tract infection Status: Acute Total Time Spent on D/C: > 30 Minutes Date of Service: Dec 21, 2024 Billing Provider: ANASTASIIA MUSTAFA MD Common Visit Codes: [id number] DISCH DAY >30min ANASTASIIA MUSTAFA MD Dec 21, 2024 18:33
== END 2024-12-21 13:00 | disposition home or self-care (01) | DRG 871 ==
LOC: ER 14:45 → ED HOLD 20:50 → EDBEDREQ 22:16 → ORTHO 4S 22:45
PROVIDERS: ADMIT Internal Medicine Pulmonary Disease; ATTEND Internal Medicine
DX: A41.52 Sepsis due to Pseudomonas (principal); N17.0 Acute kidney failure with tubular necrosis; N39.0 Urinary tract infection, site not specified; G93.49 Other encephalopathy; Z20.822 Contact with and (suspected) exposure to COVID-19; N40.0 Benign prostatic hyperplasia without lower urinary tract symptoms
CPT/HCPCS: 36415; 71045; 74176; 80048; 80053; 81001; 83605; 83735; 84132; 84145; 85025; 87040; 87077; 87081; 87088; 87186; 87811; 93005; 93308; 96365; 96375; 96376; 97116; 97161; 99291; A4615; C1758; G0378; J0696; J1644; J2405; J2543; J7030